=== PATIENT | female | born 1990 | race Caucasian/White ===

== ENCOUNTER → 2018-03-17 | Outpatient (CLI) | payer OTHER ==
[~2018-03-17] MED LIST: CYCL-36 PO; IBUP800 PO
== END ==
LOC: HPND 08:00
PROVIDERS: ATTEND Obstetrics & Gynecology
DX: Z34.82 Encounter for supervision of other normal pregnancy, second trimester (principal)
CPT/HCPCS: 76805

== ENCOUNTER 2018-08-10 07:59 | Inpatient (IN) ==
[2018-08-10] MEDS ORDERED: fentaNYL Citrate Inj 100 MCG/2 ML Ampul IV.PUSH PRN ×2 (09:17)
[2018-08-10] MEDS ORDERED: Naloxone Inj 0.4 MG/ML Vial IV.PUSH PRN ×2 (09:17→13:17)
[2018-08-10] MEDS ORDERED: Oxytocin 30 Units/500ml Premix 30 UNITS/500 ML BAG IV.SIG ONE (09:17)
[2018-08-10] MEDS ORDERED: Sodium Chlor 0.9% Inj 500 ML IV.SIG PRN (09:17)
[2018-08-10] MEDS ORDERED: Sod Chloride 0.9% Inj 1,000 ML IV.CONT PRN (09:17)
[2018-08-10] MEDS ORDERED: Citric Acid/Sodium Citrate Liq 30 ML UDC PO SCH (09:30)
[2018-08-10] MEDS ORDERED: fentaNYL 2MCG-Bupiv 0.125% Epi 150 ML EPIDURAL ONE (09:38)
[2018-08-10 09:53] LABS: Baso % (Auto) 0.3 % (0.0-2.0); Eos # (Auto) 0.3 th/mm3 (0.0-0.4); Eos % (Auto) 2.9 % (0.0-4.0); Hematocrit 33.3 % (35.0-46.0); Lymph # (Auto) 1.3 th/mm3 (1.0-4.8); Lymph % (Auto) 15.7 % (9.0-44.0); Mean Corpuscular Hemoglobin 25.9 pg (27.0-34.0); Mean Corpuscular Volume 78.5 fL (80.0-100.0); Mean Platelet Volume 7.7 fL (7.0-11.0); Mono # (Auto) 0.7 th/mm3 (0.0-0.9); Mono % (Auto) 8.5 % (0.0-8.0); Neut # (Auto) 6.2 th/mm3 (1.8-7.7); Neut % (Auto) 72.6 % (16.0-70.0); Platelet Count 161 th/mm3 (150-450); Red Blood Count 4.24 mil/mm3 (4.00-5.30); Red Cell Distribution Width 17.3 % (11.6-17.2); White Blood Count 8.6 th/mm3 (4.0-11.0)
[2018-08-10] MEDS ORDERED: Lidocaaine 1.5%/Epinephrine 1:200,000 PF Inj 5 ML Amp ONE (10:12)
[2018-08-10] MEDS ORDERED: Lidocaine PF 1% Inj 5 ML Vial ONE (10:13)
[2018-08-10 10:35] LABS: Bacteria,Urine Occasional /hpf; Bilirubin,Urine Negative (Negative); Calcium Oxalate Crystals,Urine Few /hpf; Clarity,Urine Cloudy (Clear); Color,Urine Yellow (Yellw/Straw); Glucose,Urine (UA) Negative (Negative); Leukocyte Esterase,Urine Large (Negative); Mucus,Urine Few /lpf (Occasional); Nitrite,Urine Negative (Negative); Specific Gravity,Urine 1.015 (1.002-1.035); Squamous Epithelial Cell,Urine 26 /hpf (0-5)
[2018-08-10] MEDS ORDERED: fentaNYL Citrate Inj 100 MCG/2 ML Ampul EPIDURAL ONE (11:00)
[2018-08-10] MEDS ORDERED: fentaNYL 2MCG-Bupiv 0.125% Epi 150 ML EPIDURAL PRN (11:00)
[2018-08-10 11:08] LABS: Amphetamine Urine With Conf Neg (Neg); Benzodiazepine Urine With Conf Neg (Neg)
[2018-08-10] MEDS ORDERED: Acetaminophen 325 MG Tablet PO PRN (13:17)
[2018-08-10] MEDS ORDERED: Bisacodyl 10 MG Supp RECTAL PRN (13:17)
[2018-08-10] MEDS ORDERED: Benzocaine 20% Top Spray 60 ML Can TOPICAL PRN (13:17)
[2018-08-10] MEDS ORDERED: Zolpidem Tartrate 5 MG Tablet PO PRN (13:17)
[2018-08-10] MEDS ORDERED: Oxytocin 30 Units/500ml Premix 30 UNITS/500 ML BAG IV.CONT PRN (13:17)
[2018-08-10] MEDS ORDERED: Witch Hazel 50%/Glyderin 12.5% 40 Pad Jar RECTAL PRN (13:17)
--- NOTE | 2018-08-10 13:21 | P.OBDELI ---
Weeks Gestation: 40 Patient Started Active Labor: No Medical Induction of Labor: No Artificial Rupture of Membrane: Yes Artificial ROM Date: 08/10/18 Artificial ROM Time: 09:00 Anesthesia: Epidural Episiotomy: none Vaginal Delivery: Normal, Spontaneous Presentation: Occiput anterior Nuchal Cord: None Delayed Cord Clamping (45 sec): Yes Placenta: Spontaneous delivery, 3 vessel cord Laceration: Perineal (9# 3 oz 8/9), 1 deg
--- NOTE | 2018-08-10 13:25 | P.HPOB ---
History of Present Illness Service: obstetrics Primary Care Physician: No Primary Care Physician Weeks Gestation:: 40 Para: 2 : 1 - Inpatient Certification I certify that the inpatient services were ordered in accordance with Medicare regulations governing the order. This includes certification that hospital inpatient services are reasonable and necessary and in the case of services not specified as inpatient-only under 42 CFR 419.22(n), that they are appropriately provided as inpatient services in accordance to with the 2-midnight benchmark under 43 CFR 412.3(e) Estimated Total Length of Stay (Days): 2 Plans for Post Hospital Care: Home Review of Systems All other systems reviewed negative except as stated in HPI PMFSH - History History Provided By: Patient - Medical / Surgical Hx Neg / Unobtainable Medical Problems Denied: Yes Surgical History: No Previous Surgery - Medical History Medical History: Medical History (Last Updated 08/06/18 @ 04:38 by Colton Franklin MD) History of PCOS - Surgical History Surgical History: Surgical History (Last Updated 08/06/18 @ 04:37 by Colton Franklin MD) History of laparoscopy Hx of breast reduction, elective - Social History I have reviewed the patient's Social History: Yes - Tobacco History Second Hand Smoke Exposure: No Smoking Status: Never smoker - Substance Use History Substance History: No History of Abuse - Travel History History of Recent Travel: No Recent Travel in the [place] Within the Last 8 Weeks: No Recent Travel Out of the Country Within the Last 8 Weeks: No - Immunization History Hx Influenza Vaccine This Season: No Medications and Allergies Active Medications: Active Medications Acetaminophen (Tylenol) 650 mg PO Q4H PRN PRN Reason: PAIN SCALE 1 TO 2 Al Hydroxide/Mg Hydroxide (Milk Of Magncharles Liq) 30 ml PO Q12H PRN PRN Reason: Mild Constipation Benzocaine (Americaine 20% Top [place]) 1 spray TOPICAL Q4H PRN PRN Reason: For Perineum Discomfort Bisacodyl (Dulcolax Supp) 10 mg RECTAL DAILY PRN PRN Reason: SEVERE CONSITIPATION Diphtheria/Pertussis/Tetanus Vacc (Boostrix Vaccine Inj) 0.5 ml IM .ONCE ONE Stop: 08/10/18 16:01 Ephedrine Sulfate (Ephedrine/Ns Syringe) 10 mg IV.PUSH UNSCH PRN PRN Reason: SEE LABEL COMMENTS Stop: 08/11/18 10:44 Fentanyl/Bupivacaine/Sodium Chlor (Fentanyl 2 Mcg-Bupiv 0.125% Epi) 150 mls @ 10 mls/hr EPIDURAL PRN PRN PRN Reason: for Labor Pain Last Admin: 08/10/18 10:20 Dose: 10 mls/hr Oxytocin (Pitocin 30 Units/Ns 500 Ml Premix) 30 units in 500 mls @ 100 mls/hr IV.CONT UNSCH PRN PRN Reason: Heavy bleeding Ibuprofen (Motrin) 800 mg PO Q8H PRN PRN Reason: For Cramping Lactulose (Lactulose Liq) 30 ml PO DAILY PRN PRN Reason: SEVERE CONSITIPATION Measles/Mumps/Rubella Vaccine Live (M-M-R Ii Vaccine Inj) 0.5 ml SQ .ONCE ONE Stop: 08/10/18 16:01 Miscellaneous Information (Misc Information) 1 each OTHER UNSCH PRN PRN Reason: SEE LABEL COMMENTS Stop: 08/11/18 10:44 Miscellaneous Information (Misc Information) 1 each OTHER UNSCH PRN PRN Reason: SEE LABEL COMMENTS Stop: 08/11/18 10:44 Naloxone HCl (Narcan Inj) 0.1 mg IV.PUSH Q2M PRN PRN Reason: for opiate reversal Ondansetron HCl (Zofran Odt) 4 mg PO Q6H PRN PRN Reason: NAUSEA OR VOMITING Oxycodone/Acetaminophen (Percocet 5/325 Mg) 1 tab PO Q4H PRN PRN Reason: PAIN SCALE 3 TO 5 Oxycodone/Acetaminophen (Percocet 5/325 Mg) 2 tab PO Q4H PRN PRN Reason: PAIN SCALE 6 TO 10 Senna/Docusate Sodium (Monika-Colace) 1 tab PO BID HI Sennosides (Senokot) 17.2 mg PO Q12H PRN PRN Reason: Moderate Constipation Sodium Chloride (Ns Flush) 2 ml IV.FLUSH BID HI Sodium Chloride (Ns Flush) 2 ml IV.FLUSH PRN PRN PRN Reason: FLUSH AFTER USING IV ACCESS Witch Carlotta/Glycerin (Tucks Pads) 1 applicatio RECTAL QID PRN PRN Reason: HEMORRHOIDS Zolpidem Tartrate (Ambien) 5 mg PO HS PRN PRN Reason: SLEEP Allergies Allergy/AdvReac Type Severity Reaction Status Date / Time bee venom protein (honey bee) Allergy Severe anaphalacti Unverified 08/06/18 05: 33 c penicillin G Allergy Severe Anaphylaxis Unverified 08/06/18 05:33 Sugars, Metabolically Active Allergy Severe anaphalacti Unverified 08/06/18 05: 33 c Sulfa (Sulfonamide Allergy Intermediate Rash Unverified 08/06/18 05:33 Antibiotics) Home Medications Medication Instructions Recorded Confirmed Type pantoprazole [Protonix] 40 mg PO DAILY 08/10/18 08/10/18 History Exam Vital signs: Vital Signs 08/10/18 08:24 08/10/18 08:25 08/10/18 10:28 Temperature 98.2 F Pulse Rate 82 77 Respiratory Rate 18 Blood Pressure 101/73 106/63 08/10/18 10:30 08/10/18 10:36 08/10/18 10:45 Temperature Pulse Rate 80 75 Respiratory Rate 20 20 Blood Pressure 104/64 100/64 08/10/18 10:51 08/10/18 10:54 08/10/18 10:55 Temperature Pulse Rate 77 79 Respiratory Rate 20 Blood Pressure 101/67 101/65 08/10/18 11:09 08/10/18 11:10 08/10/18 11:40 Temperature 97.8 F Pulse Rate 75 74 Respiratory Rate 20 Blood Pressure 94/60 L 99/62 L 08/10/18 11:41 08/10/18 11:50 08/10/18 12:12 Temperature Pulse Rate 73 76 Respiratory Rate 20 20 Blood Pressure 95/75 L 100/68 08/10/18 12:20 08/10/18 12:25 08/10/18 12:45 Temperature Pulse Rate 70 65 65 Respiratory Rate 20 Blood Pressure 98/77 L 109/76 08/10/18 13:15 Temperature Pulse Rate 75 Respiratory Rate Blood Pressure 109/65 Intake & Output 08/09/18 08/10/18 08/10/18 18:59 06:59 18:59 Weight 76.204 kg Other: Weight On Admission 2.41 kg - Constitutional no acute distress - Routine Neck Exam Present: full ROM - Routine Respiratory Exam Present: CTA bilaterally - Routine Cardiovascular Exam Present: RRR - Routine Abdominal Exam Present: soft, normoactive bowel sounds - Routine Exam Patient deferred: external exam Perineum Description: Intact - Routine Extremities Exam Present: full ROM - Routine Neurological Exam Present: oriented X3 - Additional findings Additional findings: cervix 4-5 on admission with AROM Results - Labs CBC & Chem 7: 08/10/18 09:05 Labs: Laboratory Results - last 24 hr 08/10/18 08/10/18 08/10/18 09:05 09:05 09:20 WBC 8.6 RBC 4.24 Hgb 11.0 L Hct 33.3 L MCV 78.5 L MCH 25.9 L MCHC 33.0 RDW 17.3 H Plt Count 161 MPV 7.7 Neut % (Auto) 72.6 H Lymph % (Auto) 15.7 [place] % (Auto) 8.5 H Eos % (Auto) 2.9 Baso % (Auto) 0.3 Neut # (Auto) 6.2 Lymph # (Auto) 1.3 [place] # (Auto) 0.7 Eos # (Auto) 0.3 Baso # (Auto) 0.0 WBC Differential . Differential Comment Auto diff final Urine Color Urine Clarity Urine pH Ur Specific [place] Urine Protein Urine Glucose (UA) Urine Ketones Urine Occult Blood Urine Nitrate Urine Bilirubin Urine Urobilinogen Ur Leukocyte Esterase Urine RBC Urine WBC Ur Squamous Epith Cells Calcium Oxalate Crystal Urine Bacteria Urine Mucus Urine Yeast Micro UA Comment Ur Microscopic Review Urine Culture Comments Urine Opiates Screen Neg Ur Barbiturates Screen Neg Ur Amphetamine Screen Neg U Benzodiazepines Scrn Neg Urine Cocaine Screen Neg U Cannabinoids Screen Neg Blood Type A Positive 08/10/18 09:20 WBC RBC Hgb Hct MCV MCH MCHC RDW Plt Count MPV Neut % (Auto) Lymph % (Auto) [place] % (Auto) Eos % (Auto) Baso % (Auto) Neut # (Auto) Lymph # (Auto) [place] # (Auto) Eos # (Auto) Baso # (Auto) WBC Differential Differential Comment Urine Color Yellow Urine Clarity Cloudy H Urine pH 6.0 Ur Specific [place] 1.015 Urine Protein 30 H Urine Glucose (UA) Negative Urine Ketones Negative Urine Occult Blood Small H Urine Nitrate Negative Urine Bilirubin Negative Urine Urobilinogen Less than 2 Ur Leukocyte Esterase Large H Urine RBC 12 H Urine WBC 61 H Ur Squamous Epith Cells 26 Calcium Oxalate Crystal Few H Urine Bacteria Occasional H Urine Mucus Few H Urine Yeast Few H Micro UA Comment Culture indicated Ur Microscopic Review Not Reportable Urine Culture Comments Culture indicated Urine Opiates Screen Ur Barbiturates Screen Ur Amphetamine Screen U Benzodiazepines Scrn Urine Cocaine Screen U Cannabinoids Screen Blood Type Caprini VTE Risk Assessment Caprini VTE Risk Assessment: No/Low Risk (score <= 1) Caprini Risk Assessment Model: Point Value = 1 Point Value = 2 Point Value = 3 Point Value = 5 Age 41-60 Minor surgery BMI > 25 kg/m2 Swollen legs Varicose veins or History of unexplained or recurrent spontaneous Oral contraceptives or hormone replacement Sepsis (< 1 month) Serious lung disease, including pneumonia (< 1 month) Abnormal pulmonary function Acute myocardial infarction Congestive heart failure (< 1 month) History of inflammatory bowel disease Medical patient at bed rest Age 61-74 Arthroscopic surgery Major open surgery (> 45 min) Laparoscopic surgery (> 45 min) Malignancy Confined to bed (> 72 hours) Immobilizing plaster cast Central venous access Age >= 75 History of VTE Family history of VTE Factor V Leiden Prothrombin [id number] Lupus anticoagulant Anticardiolipin antibodies Elevated serum homocysteine Heparin-induced thrombocytopenia Other congenital or acquired thrombophilia Stroke (< 1 month) Elective arthroplasty Hip, pelvis, or leg fracture Acute spinal cord injury (< 1 month) Prophylaxis Regimen: Total Risk Factor Score Risk Level Prophylaxis Regimen 0-1 Low Early ambulation 2 Moderate Order ONE of the following: *Sequential Compression Device (SCD) *Heparin 5000 units SQ BID 3-4 Higher Order ONE of the following medications: *Heparin 5000 units SQ TID *Enoxaparin/Lovenox 40 mg SQ daily (WT < 150 kg, CrCl > 30 mL/min) *Enoxaparin/Lovenox 30 mg SQ daily (WT < 150 kg, CrCl > 10-29 mL/min) *Enoxaparin/Lovenox 30 mg SQ BID (WT < 150 kg, CrCl > 30 mL/min) AND/OR *Sequential Compression Device (SCD) 5 or more Highest Order ONE of the following medications: *Heparin 5000 units SQ TID (Preferred with Epidurals) *Enoxaparin/Lovenox 40 mg SQ daily (WT < 150 kg, CrCl > 30 mL/min) *Enoxaparin/Lovenox 30 mg SQ daily (WT < 150 kg, CrCl > 10-29 mL/min) *Enoxaparin/Lovenox 30 mg SQ BID (WT < 150 kg, CrCl > 30 mL/min) AND *Sequential Compression Device (SCD) Assessment and Plan - Diagnosis (1) 38 weeks gestation of Code(s): Z3A.38 - 38 weeks gestation of Status: Acute
[2018-08-10] MEDS ORDERED: Diphtheria/Tetanus/Pertussis Vaccine Inj 0.5 ML Syringe IM ONE (16:00)
[2018-08-10] MEDS ORDERED: Measles/Mumps/Rubella Vaccine Inj 0.5 ML Vial SQ ONE (16:00)
[2018-08-11] MEDS: Senna/Docusate Sodium 8.6/50 MG Tablet PO SCH ×2 (03:24→08:30)
--- NOTE | 2018-08-11 08:42 | P.PNOB ---
Subjective Post day: 1 Interval history: doing well, Objective Vital Signs/I&O: Vital Signs 08/10/18 10:28 08/10/18 10:30 08/10/18 10:36 Temperature Pulse Rate 77 80 Respiratory Rate 20 Blood Pressure 106/63 104/64 08/10/18 10:45 08/10/18 10:51 08/10/18 10:54 Temperature Pulse Rate 75 77 Respiratory Rate 20 20 Blood Pressure 100/64 101/67 08/10/18 10:55 08/10/18 11:09 08/10/18 11:10 Temperature 97.8 F Pulse Rate 79 75 Respiratory Rate 20 Blood Pressure 101/65 94/60 L 08/10/18 11:40 08/10/18 11:41 08/10/18 11:50 Temperature Pulse Rate 74 73 Respiratory Rate 20 Blood Pressure 99/62 L 95/75 L 08/10/18 12:12 08/10/18 12:20 08/10/18 12:25 Temperature Pulse Rate 76 70 65 Respiratory Rate 20 Blood Pressure 100/68 98/77 L 08/10/18 12:45 08/10/18 13:15 08/10/18 13:20 Temperature Pulse Rate 65 75 Respiratory Rate 20 18 Blood Pressure 109/76 109/65 08/10/18 13:43 08/10/18 13:57 08/10/18 14:15 Temperature Pulse Rate 74 69 59 L Respiratory Rate 18 18 18 Blood Pressure 104/64 104/65 103/67 08/10/18 14:21 08/10/18 14:30 08/10/18 14:45 Temperature 98.5 F Pulse Rate 90 79 Respiratory Rate 18 18 Blood Pressure 107/70 102/62 08/10/18 16:55 08/10/18 20:00 Temperature 98.4 F 98.5 F Pulse Rate 71 71 Respiratory Rate 20 16 Blood Pressure 95/61 L 102/63 Intake & Output 08/10/18 08/11/18 08/11/18 18:59 06:59 18:59 Intake Total 1000 / 1000 Balance 1000 / 1000 Weight 76.204 kg Intake: IV 1000 / 1000 LR 1000 mL Inj 1,000 ML @ 3000 1000 / 1000 mls/hr IV.SIG UNSCH PRN Rx#: [id number] Other: Weight On Admission 2.41 kg Result Diagrams: 08/10/18 09:05 Objective Remarks: GENERAL: Well-nourished, well-developed patient. CARDIOVASCULAR: Regular rate and rhythm without murmurs, gallops, or rubs. RESPIRATORY: Breath sounds equal bilaterally. No accessory muscle use. ABDOMEN/GI: Abdomen soft, non-tender. Fundus: Firm, non-tender at umbilicus. GENITOURINARY: Light to moderate bleeding. EXTREMITIES: No cyanosis or edema, non-tender, without signs of DVT. Medications and IVs: Active Medications Acetaminophen (Tylenol) 650 mg PO Q4H PRN PRN Reason: PAIN SCALE 1 TO 2 Al Hydroxide/Mg Hydroxide (Milk Of Magnesia Liq) 30 ml PO Q12H PRN PRN Reason: Mild Constipation Benzocaine (Americaine 20% Top [place]) 1 spray TOPICAL Q4H PRN PRN Reason: For Perineum Discomfort Last Admin: 08/10/18 19:17 Dose: 1 spray Bisacodyl (Dulcolax Supp) 10 mg RECTAL DAILY PRN PRN Reason: SEVERE CONSITIPATION Ephedrine Sulfate (Ephedrine/Ns Syringe) 10 mg IV.PUSH UNSCH PRN PRN Reason: SEE LABEL COMMENTS Stop: 08/11/18 10:44 Fentanyl/Bupivacaine/Sodium Chlor (Fentanyl 2 Mcg-Bupiv 0.125% Epi) 150 mls @ 10 mls/hr EPIDURAL PRN PRN PRN Reason: for Labor Pain Last Admin: 08/10/18 10:20 Dose: 10 mls/hr Oxytocin (Pitocin 30 Units/Ns 500 Ml Premix) 30 units in 500 mls @ 100 mls/hr IV.CONT UNSCH PRN PRN Reason: Heavy bleeding Ibuprofen (Motrin) 800 mg PO Q8H PRN PRN Reason: For Cramping Last Admin: 08/11/18 06:55 Dose: 800 mg Lactulose (Lactulose Liq) 30 ml PO DAILY PRN PRN Reason: SEVERE CONSITIPATION Miscellaneous Information (Misc Information) 1 each OTHER UNSCH PRN PRN Reason: SEE LABEL COMMENTS Stop: 08/11/18 10:44 Miscellaneous Information (Misc Information) 1 each OTHER UNSCH PRN PRN Reason: SEE LABEL COMMENTS Stop: 08/11/18 10:44 Naloxone HCl (Narcan Inj) 0.1 mg IV.PUSH Q2M PRN PRN Reason: for opiate reversal Ondansetron HCl (Zofran Odt) 4 mg PO Q6H PRN PRN Reason: NAUSEA OR VOMITING Oxycodone/Acetaminophen (Percocet 5/325 Mg) 1 tab PO Q4H PRN PRN Reason: PAIN SCALE 3 TO 5 Oxycodone/Acetaminophen (Percocet 5/325 Mg) 2 tab PO Q4H PRN PRN Reason: PAIN SCALE 6 TO 10 Senna/Docusate Sodium (Monika-Colace) 1 tab PO BID [facility] Last Admin: 08/11/18 08:30 Dose: 1 tab Sennosides (Senokot) 17.2 mg PO Q12H PRN PRN Reason: Moderate Constipation Sodium Chloride (Ns Flush) 2 ml IV.FLUSH BID [facility] Last Admin: 08/11/18 03:24 Dose: Not Given Sodium Chloride (Ns Flush) 2 ml IV.FLUSH UNSCH PRN PRN Reason: FLUSH AFTER USING IV ACCESS Last Admin: 08/10/18 14:45 Dose: 2 ml Witch Carlotta/Glycerin (Tucks Pads) 1 applicatio RECTAL QID PRN PRN Reason: HEMORRHOIDS Last Admin: 08/10/18 19:16 Dose: 1 applicatio Zolpidem Tartrate (Ambien) 5 mg PO HS PRN PRN Reason: SLEEP Assessment and Plan - Diagnosis (1) 38 weeks gestation of Code(s): Z3A.38 - 38 weeks gestation of Status: Acute (2) (spontaneous vaginal delivery) Code(s): O80 - Encounter for full-term uncomplicated delivery Status: Acute - Plan dc home at Pt request
--- NOTE | 2018-08-11 08:50 | P.DS ---
Date of admission: 08/10/18 07:59 Primary care physician: No Primary Care Physician Brief History from admission: Patient came for induction of labor with cervix 4 cm she delivered within hours of admission. she wants DC home ppd#1 DS: Diagnosis - Discharge Diagnosis (1) 38 weeks gestation of Status: Acute (2) (spontaneous vaginal delivery) Status: Acute DS: Summary Hospital Course: doing well, Dc home on 08/10 - Time Spent with Patient Total time spent providing and/or coordinating discharge services: Less than 30 minutes Exam Vital signs: Vital Signs 08/10/18 10:28 08/10/18 10:30 08/10/18 10:36 Temperature Pulse Rate 77 80 Respiratory Rate 20 Blood Pressure 106/63 104/64 08/10/18 10:45 08/10/18 10:51 08/10/18 10:54 Temperature Pulse Rate 75 77 Respiratory Rate 20 20 Blood Pressure 100/64 101/67 08/10/18 10:55 08/10/18 11:09 08/10/18 11:10 Temperature 97.8 F Pulse Rate 79 75 Respiratory Rate 20 Blood Pressure 101/65 94/60 L 08/10/18 11:40 08/10/18 11:41 08/10/18 11:50 Temperature Pulse Rate 74 73 Respiratory Rate 20 Blood Pressure 99/62 L 95/75 L 08/10/18 12:12 08/10/18 12:20 08/10/18 12:25 Temperature Pulse Rate 76 70 65 Respiratory Rate 20 Blood Pressure 100/68 98/77 L 08/10/18 12:45 08/10/18 13:15 08/10/18 13:20 Temperature Pulse Rate 65 75 Respiratory Rate 20 18 Blood Pressure 109/76 109/65 08/10/18 13:43 08/10/18 13:57 08/10/18 14:15 Temperature Pulse Rate 74 69 59 L Respiratory Rate 18 18 18 Blood Pressure 104/64 104/65 103/67 08/10/18 14:21 08/10/18 14:30 08/10/18 14:45 Temperature 98.5 F Pulse Rate 90 79 Respiratory Rate 18 18 Blood Pressure 107/70 102/62 08/10/18 16:55 08/10/18 20:00 Temperature 98.4 F 98.5 F Pulse Rate 71 71 Respiratory Rate 20 16 Blood Pressure 95/61 L 102/63 Intake & Output 08/10/18 08/11/18 08/11/18 18:59 06:59 18:59 Intake Total 1000 / 1000 Balance 1000 / 1000 Weight 76.204 kg Intake: IV 1000 / 1000 LR 1000 mL Inj 1,000 ML @ 3000 1000 / 1000 mls/hr IV.SIG UNSCH PRN Rx#: [id number] Other: Weight On Admission 2.41 kg - Constitutional no acute distress - Routine Neck Exam Present: full ROM - Routine Abdominal Exam Present: soft, normoactive bowel sounds - Routine Skin Exam Present: intact Results Procedures completed during hospitalization: on 08/10 Labs on day of discharge: Labs from last 24 hours 08/10/18 08/10/18 08/10/18 09:20 09:20 09:20 WBC RBC Hgb Hct MCV MCH MCHC RDW Plt Count MPV Neut % (Auto) Lymph % (Auto) [place] % (Auto) Eos % (Auto) Baso % (Auto) Neut # (Auto) Lymph # (Auto) [place] # (Auto) Eos # (Auto) Baso # (Auto) WBC Differential Differential Comment Urine Color Yellow Urine Clarity Cloudy H Urine pH 6.0 Ur Specific [place] 1.015 Urine Protein 30 H Urine Glucose (UA) Negative Urine Ketones Negative Urine Occult Blood Small H Urine Nitrate Negative Urine Bilirubin Negative Urine Urobilinogen Less than 2 Ur Leukocyte Esterase Large H Urine RBC 12 H Urine WBC 61 H Ur Squamous Epith Cells 26 Calcium Oxalate Crystal Few H Urine Bacteria Occasional H Urine Mucus Few H Urine Yeast Few H Micro UA Comment Culture indicated Ur Microscopic Review Not Reportable Urine Culture Comments Culture indicated Urine Opiates Screen Neg Ur Buprenorphine Pending Ur [place] Screen Pending Urine Oxycodone Pending Ur Methadone Pending U Hydromorphone Confirm Pending Urine Fentanyl Pending Ur Barbiturates Screen Neg Urine Gabapentin Pending Ur Phencyclidine (PCP) Pending Urine MDPV Pending Ur Amphetamine Screen Neg Ur MDMA & Metabolites Pending U Benzodiazepines Scrn Neg Urine Cocaine Screen Neg U Cannabinoids Screen Neg Ur Synth THC (K2) Pending Blood Type 08/10/18 08/10/18 09:05 09:05 WBC 8.6 RBC 4.24 Hgb 11.0 L Hct 33.3 L MCV 78.5 L MCH 25.9 L MCHC 33.0 RDW 17.3 H Plt Count 161 MPV 7.7 Neut % (Auto) 72.6 H Lymph % (Auto) 15.7 [place] % (Auto) 8.5 H Eos % (Auto) 2.9 Baso % (Auto) 0.3 Neut # (Auto) 6.2 Lymph # (Auto) 1.3 [place] # (Auto) 0.7 Eos # (Auto) 0.3 Baso # (Auto) 0.0 WBC Differential . Differential Comment Auto diff final Urine Color Urine Clarity Urine pH Ur Specific [place] Urine Protein Urine Glucose (UA) Urine Ketones Urine Occult Blood Urine Nitrate Urine Bilirubin Urine Urobilinogen Ur Leukocyte Esterase Urine RBC Urine WBC Ur Squamous Epith Cells Calcium Oxalate Crystal Urine Bacteria Urine Mucus Urine Yeast Micro UA Comment Ur Microscopic Review Urine Culture Comments Urine Opiates Screen Ur Buprenorphine Ur [place] Screen Urine Oxycodone Ur Methadone U Hydromorphone Confirm Urine Fentanyl Ur Barbiturates Screen Urine Gabapentin Ur Phencyclidine (PCP) Urine MDPV Ur Amphetamine Screen Ur MDMA & Metabolites U Benzodiazepines Scrn Urine Cocaine Screen U Cannabinoids Screen Ur Synth THC (K2) Blood Type A Positive Discharge Plan - Discharge Disposition Patient Disposition: 01 Discharge Home - Discharge Condition Condition: Good - Discharge Order Discharge Orders: Discharge Order (Routine); Ordered 08/11/18 Ordered By: Ramone Massey - Physicians Team Primary Care Provider: Primary Care Shari Xvaier Attending Provider: Ramone Massey - Rxs /Orders / Referrals /Forms Prescriptions: Continue pantoprazole [Protonix] 40 mg Tablet,Delayed Release (Dr/Ec) 40 mg PO DAILY Referrals: Raomne Massey MD [Physician] - See Instructions (2 weeks follow up) Primary Care Shari Xavier [Primary Care Provider] - See Instructions - Post Discharge Care Plan Care Plan Goals: Congratulations on your new baby! We want your recovery to be farrar and trouble free. Please Report the Following Symptoms to Your Doctor: -Temperature above 100.5 degrees -Unusual pain or calf pain -Increased vaginal bleeding -Painful or difficulty urinating -Feelings of extreme sadness or anxiety Goals to Promote Your Health * To prevent worsening of your condition and complications * To maintain your health at the optimal level Directions to Meet Your Goals Take your medications as prescribed Follow your dietary instruction Follow activity as directed Ensure plenty of rest for recovery Drink fluids for hydration Keep your appointments as scheduled Take your immunizations and boosters as scheduled If your symptoms worsen call your OB Physician, or go to an Urgent Care Center or Emergency Room Smoking is Dangerous to your health. Avoid second hand smoke Call the 24-hour crisis hotline for domestic abuse at
[2018-08-11 15:04] VITALS: BP 106/72; PULSE 60; RESP 20
[2018-08-11 15:05] VITALS: TEMP 98.1
[2018-08-11] MEDS ORDERED: Influenza (Quadrivalent) Vaccine 0.5 ML Syringe IM ONE (18:00)
== END 2018-08-11 18:08 | disposition home or self-care (01) ==
LOC: H2E 07:59 → H1EA 15:22
PROVIDERS: ADMIT Obstetrics & Gynecology; ATTEND Obstetrics & Gynecology